=== PATIENT | male | born 1940 | race Caucasian/White ===

== ENCOUNTER → 2016-05-12 | Outpatient (CLI) | payer MEDICARE, BC ==
--- NOTE | 2016-05-12 15:31 | US ---
EXAMINATION TYPE: US kidneys/renal and bladder DATE OF EXAM: 05/12/2016 2:11 PM COMPARISON: NONE CLINICAL HISTORY: R10.9 FLANK PAIN, RENAL CYST. H/O renal stones on the right EXAM MEASUREMENTS: Right Kidney: 11.2 x 4.9 x 5.9cm cm Left Kidney: 11.1 x 5.2 x 6.9cm cm Right Kidney: 1.3cm superior pole stone seen, 1.7cm inferior pole cyst Left Kidney: 1.7cm lateral cyst seen Bladder: wnl Bilateral Jets seen: yes Cortical echotexture appears somewhat increased, there is cortical thinning bilaterally. Bilateral re nal cysts show imperceptible wall, are anechoic and show increased through transmission Inferior impr ession on the bladder likely due to prostatic hypertrophy. IMPRESSION: Right-sided nephrolithiasis. There may be underlying medical renal disease. Cysts within the bilatera l kidneys appear simple
== END | disposition home or self-care (01) ==
LOC: RADUSWWP 13:51
PROVIDERS: ATTEND Urology
DX: N20.0 Calculus of kidney (principal); N28.1 Cyst of kidney, acquired
CPT/HCPCS: 76770

== ENCOUNTER → 2017-04-15 | Outpatient (CLI) | payer MEDICARE, BC ==
--- NOTE | 2017-04-15 11:30 | US ---
EXAMINATION TYPE: US kidneys/renal and bladder DATE OF EXAM: 04/15/2017 COMPARISON: US 2017 CLINICAL HISTORY: R93.4 Renal Cyst. Follow up renal stones and cysts EXAM MEASUREMENTS: Right Kidney: 11.0 x 5.9 x 5.0 cm Left Kidney: 11.7 x 5.8 x 5.1 cm Right Kidney: echogenic shadowing focus superior pole = 0.8 x 1.0 x 1.3cm, cyst lateral midpole = 1.1 x 1.1 x 1.3cm, cyst inferior pole = 1.6 x 1.5 x 1.5cm. The inferior pole cyst measuring 1.7 cm on th e prior exam in the lateral mid pole cyst was not identified. Left Kidney: multiple tiny echogenic foci scattered throughout, cyst lateral midpole = 1.3 x 1.1 x 1. 5cm. The mid pole lateral renal cyst measured 1.7 cm on the prior exam. Bladder: wnl Bilateral Jets seen: no Prostate: enlarged at 4.5 x 3.7 x 4.4cm and heterogenous in echotexture. IMPRESSION: 1. Bilateral nephrolithiasis without evidence of hydronephrosis. 2. Bilateral renal cysts. Two of these appears minimally smaller than on the prior exam, likely stabl e in size differences are visible to technique, with an additional 1.3 cm lateral right renal cyst id entified in comparison to the prior. 3. Incidentally noted heterogenous and enlarged prostate.
--- NOTE | 2017-04-15 13:53 | XR ---
Abdomen HISTORY: Renal cysts, right-sided kidney stones Frontal view of the abdomen on 2 images correlated to prior abdomen 02/11/2016 At least 3 right-sided renal calcifications are again noted, largest measures 13 x 6 mm, taller measu ring approximately 6 mm each. Postop changes are noted to the heart and gastroesophageal junction. Th ere is no bowel obstruction or pneumoperitoneum evident. Calcifications are present within the pelvis which are felt likely to represent phleboliths, prostatic calcifications, vascular calcifications. IMPRESSION: Right-sided nephrolithiasis.
== END | disposition home or self-care (01) ==
LOC: RADUSWWP 10:27
PROVIDERS: ATTEND Urology
DX: N20.0 Calculus of kidney (principal); N28.1 Cyst of kidney, acquired
CPT/HCPCS: 74018; 76770

== ENCOUNTER → 2019-09-29 | Outpatient (CLI) | payer MEDICARE, BC ==
--- NOTE | 2019-09-29 14:18 | XR ---
EXAMINATION TYPE: XR KUB DATE OF EXAM: 09/29/2019 HISTORY: Pain Comparison: April 15, 2017 Single KUB is submitted for interpretation. Findings: Right renal calculi: Numerous, at least 10, calculi noted about the right mid kidney. The largest felix culus is identified within the mid to upper pole and measures 1.2 cm and appears unchanged from prior study. Overall number of calculi appear Increased. Right ureteral calculi: None Visualized. Left renal calculi: There appear to be 4 -5 small calculi overlying the lower pole of the left kidne y measuring up to 3 mm. Left ureteral calculi: None Visualized. Pelvic calcifications: Multiple pelvic calcifications noted felt to reflect phlebolith formation. Bowel gas pattern is unremarkable. No free air. No mass effects. IMPRESSION: 1. Bilateral nephrolithiasis as noted.
== END | disposition home or self-care (01) ==
LOC: RADXRMAIN 13:10
PROVIDERS: ATTEND Urology
DX: N20.0 Calculus of kidney (principal)
CPT/HCPCS: 74018

== ENCOUNTER → 2020-04-25 | Outpatient (CLI) | payer MEDICARE, BC ==
--- NOTE | 2020-04-25 11:00 | XR ---
Abdomen HISTORY: Calculus of kidney, N20.0 frontal view of the abdomen on 2 images, comparison prior KUB 09/29/2019 Bilateral nephrolithiasis is noted as on prior exam. Right-sided calculi have not changed, there are multiple small fragments, dominant calcification measures approximately 14 mm and they've grown somew hat in the interval. There are at least 10 calcifications and possibly contacting calcifications pres ent. 3 calcifications are seen over the lower pole the left kidney similar to prior, the largest tomeka ures approximately 3 mm. Multiple calcifications are present within the pelvis which are likely vascu lar. There are likely prostatic calcifications present. Degenerative disc changes are present in the visualized spine. Lung bases are clear. IMPRESSION: Bilateral nephrolithiasis.
== END | disposition home or self-care (01) ==
LOC: RADXRMAIN 09:25
PROVIDERS: ATTEND Urology
DX: N20.0 Calculus of kidney (principal)
CPT/HCPCS: 74018

== ENCOUNTER → 2020-10-01 | Outpatient (CLI) | payer MEDICARE, BC ==
--- NOTE | 2020-10-01 14:51 | XR ---
KUB HISTORY: Left-sided kidney stone Frontal KUB submitted on 2 images and correlated to prior abdomen 04/25/2020 Multiple calcifications are seen overlying the right kidney similar to prior exam. Suspect small calc ifications are overlying the lower pole the left kidney similar to prior exam. Multiple calcification s the pelvis are felt likely to be vascular or possibly related to prostate. There is no evident villa l obstruction or pneumoperitoneum. IMPRESSION: Nephrolithiasis bilaterally is stable.
== END | disposition home or self-care (01) ==
LOC: RADXRMAIN 11:32
PROVIDERS: ATTEND Urology
DX: N20.0 Calculus of kidney (principal)
CPT/HCPCS: 74018

== ENCOUNTER 2021-08-08 10:10 | Emergency (ER) | payer MEDICARE, BC ==
--- NOTE | 2021-08-08 10:26 | ED ---
General Adult HPI - General Stated complaint: Cardiac Arrest Time Seen by Provider: 08/08/21 10:10 Source: EMS, RN notes reviewed Mode of arrival: EMS Limitations: altered mental status, physical limitation - History of Present Illness Initial comments: Patient is unresponsive 81-year-old male presenting to the emergency department by EMS, priority 1. Patient went unresponsive at home with bystander CPR proximally 10 minutes. EMS arrived and did CPR for approximately 20 minutes with return of circulation. This lasted around 15 minutes. Patient lost pulses again proximally 15 minutes prior to arrival and CPR has been continued since that time. Patient has received 6 epi Review of Systems ROS Statement: Those systems with pertinent positive or pertinent negative responses have been documented in the HPI. ROS Other: All systems not noted in ROS Statement are negative. Limitations: ROS unobtainable due to patients medical condition Past Medical History Past Medical History: Unable to Obtain Past Surgical History: Unable to Obtain Smoking Status: Unknown if ever smoked Past Alcohol Use History: Unable to Obtain Past Drug Use History: Unable to Obtain General Exam Limitations: altered mental status, physical limitation General appearance: other (Unresponsive) Head exam: Present: atraumatic Eye exam: Present: other (Pupils fixed and dilated) ENT exam: Present: normal oropharynx Neck exam: Present: normal inspection Respiratory exam: Present: other (No spontaneous lung sounds. Mild lung sounds with bagging insufflation) Cardiovascular Exam: Present: other (No spontaneous pulse. No heart sounds.) GI/Abdominal exam: Present: soft. Absent: tenderness Extremities exam: Present: normal inspection Neurological exam: Present: other (Unresponsive) Psychiatric exam: Present: other (Unresponsive) Skin exam: Present: cyanosis Course - Reevaluation(s) Reevaluation #1: 08/08/21 10:25 At 10:20 AM patient was found to be PA on the monitor. No pulses. No heart sounds. No spontaneous respirations. Pupils are fixed and dilated. No response to pain. Time of is 10:20 AM. 08/08/21 10:36 Case discussed with Ca with Dr. Rendon's office, she will inform him of patient's . She does not have further history at this time. 08/08/21 10:40 Case was discussed with Patty from the medical social worker's office. 08/08/21 10:50 Family updated who confirms history. states she found patient outside face down and did perform bystander CPR. Procedures - Intubation Laryngoscope: [place] Size: 3 ET Tube Size: 8 Tube Placement Confirmation: visualized tube passing through cords, equal breath sounds bilaterally, no breath sounds over epigastrium, confirmation by capnometry Patient Tolerated Procedure: well, no complications Disposition Clinical Impression: Cardiac arrest Disposition: Is patient prescribed a controlled substance at d/c from ED?: No Referrals: Jose Rendon MD [Primary Care Provider] - 1-2 days Time of Disposition: 10:26 Preliminary Cause of : Cardiac arrest
== END 2021-08-08 10:45 | disposition expired ==
LOC: EC 10:10
DX: I46.9 Cardiac arrest, cause unspecified (principal)
CPT/HCPCS: 96361; 96365; 96375; 99291